=== PATIENT | male | born 1980 | race Hispanic/Latino ===

== ENCOUNTER 2024-02-18 22:02 | Emergency (ER) | payer SELFPAY ==
[~2024-02-18] VITALS: Ht 172.7 cm; Wt 115.0 kg
[2024-02-18 22:15] VITALS: BP 145/97
[2024-02-18] MEDS ORDERED: FUROSEMIDE 40 MG/4 ML SDV IV ONE (22:20)
[2024-02-18 22:30] VITALS: BP 135/88
[2024-02-18 22:55] LABS: BASO% 0.7 % (0-3); EOS% 2.2 % (0-8); HEMATOCRIT 41.8 % (39.0-50.0); HEMOGLOBIN 14.2 g/dl (14.0-18.0); IMMATURE GRANULOCYTES 0.5 % (0.0-5.0); LYMPH% 28.9 % (15-41); MEAN CELL VOLUME 93.3 fL CALC (80.0-100.0); MEAN CORPUSCULAR HGB 31.7 pG CALC (26.0-32.0); MONO% 9.7 % (2-13); NEUT# 4.93 thou/uL (1.82-7.42); RED BLOOD COUNT 4.48 mill/uL (4.70-6.10); RED CELL DISTRI WIDTH 11.5 % (11.5-15.5)
[2024-02-18 23:01] VITALS: BP 118/80
[2024-02-18 23:07] LABS: URINE BLOOD DIPSTICK Small (NEGATIVE); URINE GLUCOSE - DIPSTICK Negative (NEGATIVE); URINE KETONE Negative (NEGATIVE); URINE LEUK ESTERASE Negative (NEGATIVE); URINE NITRITE - DIPSTICK Negative (Negative); URINE PH 5.5 (4.5-8.0); URINE PROTEIN - DIPSTICK Negative (NEG-TRACE); URINE SPECIFIC GRAVITY >=1.030; URINE UROBILINOGEN - DIPSTICK 0.2 E.U./dL (0.2)
[2024-02-18 23:12] LABS: URINE COLOR Yellow
[2024-02-18 23:14] LABS: ACT PARTIAL THROMBO TIME 24.9 SECONDS (20.0-32.5); INTERNATIONAL NORMALIZED RATIO 1.1 RATIO (0.7-1.3)
[2024-02-18 23:21] LABS: URINE RBC 0-2 RBC/hpf (0-5); URINE WBC 0-2 WBC/hpf (0-5)
[2024-02-18 23:22] LABS: ALBUMIN 3.8 g/dL (3.2-5.0); ALKALINE PHOSPHATASE 113 u/l (38-126); ANION GAP 8 (6-22 (CALC)); BILIRUBIN, TOTAL 1.2 mg/dL (0.2-1.3); BUN 14 mg/dL (9-20); BUN/CREATININE RATIO 16 (12-20 (CALC)); CARBON DIOXIDE 24 mmol/l (22-30); CHLORIDE 113 mmol/l (95-108); CPK 292 u/l (55-170); CREATININE 0.8 mg/dL (0.7-1.3); ESTIMATED GFR 113 ML/MIN (>=90 (CALC)); MAGNESIUM 2.2 mg/dL (1.6-2.3); POTASSIUM 3.9 mmol/l (3.5-5.1); SGOT/AST 27 u/l (17-59); SODIUM 140 mmol/l (137-146); TOTAL PROTEIN 7.4 g/dL (6.3-8.2); URINE SQUAMOUS EPITHELIAL CELL FEW EPI/hpf (0-FEW)
[2024-02-18 23:24] LABS: PROTHROMBIN TIME 10.1 SECONDS (9.0-12.5)
[2024-02-18 23:30] VITALS: BP 99/57
[2024-02-18 23:56] LABS: TSH, 3RD GENERATION 3.63 uIU/mL (0.47 - 4.68)
[2024-02-19] VITALS: BP 117/74
[2024-02-19] MEDS ORDERED: MAXZIDE-25MG1 COMBO PO (00:01)
[2024-02-19 00:24] VITALS: BP 117/74
== END 2024-02-19 00:24 | disposition home or self-care (01) | DRG 948 ==
LOC: ED 22:02
PROVIDERS: Family Medicine
DX: R60.0 Localized edema (principal); I10 Essential (primary) hypertension